=== PATIENT | male | born 1960 | race Caucasian/White ===

== ENCOUNTER 2023-12-01 08:57 | Inpatient (IN) | payer BC ==
[~2023-12-01] VITALS: Ht 152.4 cm; Wt 90.5 kg
[2023-12-01 12:19] LABS: BASO # 0.1 10^3/uL (0.0-0.2); EOS % 0.4 % (0.0-3.0); HEMATOCRIT 36.9 % (42.0-52.0); HEMOGLOBIN 13.1 g/dl (13.5-17.5); LYMPH # 0.9 10^3/uL (1.5-5.0); LYMPH % 8.1 % (24.0-44.0); MEAN CORPUSCULAR HEMOGLOBIN 38.2 pg (27.0-33.0); MEAN CORPUSCULAR HGB CONC 35.5 g/dl (32.0-36.5); MEAN CORPUSCULAR VOLUME 107.6 fl (80.0-96.0); MONO # 1.4 10^3/uL (0.0-0.8); MONO % 12.3 % (2.0-8.0); NEUTROPHILS # 8.6 10^3/uL (1.5-8.5); NEUTROPHILS % 76.6 % (36.0-66.0); RED BLOOD COUNT 3.43 10^6/uL (4.30-6.10); WHITE BLOOD COUNT 11.2 10^3/uL (4.0-10.0)
[2023-12-01 12:30] LABS: LIPASE 25 U/L (12-53)
[2023-12-01 12:33] LABS: ALBUMIN 1.5 G/DL (3.2-5.2); ALKALINE PHOSPHATASE 235 U/L (46-116); ALT/SGPT 112 U/L (7.0-40); AST/SGOT 405 U/L (<34); BILIRUBIN,DIRECT 8.1 MG/DL (<0.4); BILIRUBIN,TOTAL 12.5 MG/DL (0.3-1.2); BLOOD UREA NITROGEN 16 MG/DL (9-23); CALCIUM LEVEL 7.7 MG/DL (8.3-10.6); CARBON DIOXIDE LEVEL 31 MMOL/L (20-31); CHLORIDE LEVEL 94 MMOL/L (98-107); CREATININE FOR GFR 0.97 MG/DL (0.70-1.30); GLOMERULAR FILTRATION RATE > 60.0 (>49); GLUCOSE, FASTING 95 MG/DL (74-106); POTASSIUM SERUM 3.4 MMOL/L (3.5-5.1); SODIUM LEVEL 134 MMOL/L (136-145); TOTAL PROTEIN 7.4 G/DL (5.7-8.2)
[2023-12-01 12:47] LABS: INR 3.84; PARTIAL THROMBOPLASTIN TIME 49.7 SECONDS (24.8-34.2); PROTHROMBIN TIME 36.3 SECONDS (12.5-14.5)
[2023-12-01] MEDS ORDERED: ISOVUE-370 76% 100ML VIAL As Ordered ONE (13:01)
[2023-12-01 13:03] LABS: PLATELET COUNT, AUTOMATED 52 10^3/uL (150-450)
[2023-12-01] MEDS: PIPERACILLIN/TAZOBACTAM SOD 4.5 GM in D5W MINI-BAG PLUS 50 ML IV ONE (13:44)
[2023-12-01 14:00] LABS: RSV AMPLIFICATION NEGATIVE (NEGATIVE)
[2023-12-01] MEDS ORDERED: HOME MED LIST COMPLETE! XX SCH (14:55)
[2023-12-01] MEDS: FUROSEMIDE 40MG/4ML VIAL IV ONE (15:27)
[2023-12-01] MEDS: AZITHROMYCIN INJ 500 MG, VIAL MATE ADAPTER 1 EACH in D5W 250 ML IV ONE (15:27)
[2023-12-01 16:24] LABS: PROCALCITONIN 0.44 ng/ml
[2023-12-01] MEDS ORDERED: LORazepam 2 MG TAB PO PRN (16:35)
[2023-12-01 16:49] VITALS: BP 168/81; TEMP 98; O2SAT 93
[2023-12-01] MEDS: ONDANSETRON 4MG 2ML VIAL IV PRN (17:17)
[2023-12-01] MEDS: KCL 10MEQ/100ML SWI (KRUN) 10 MEQ in IV 1 EA IV ONE (17:19)
[2023-12-01] MEDS: SUCRALFATE SUSP 1GM/10ML UD PO SCH (17:20)
[2023-12-01] MEDS: THIAMINE 100 MG TAB PO SCH (17:20)
[2023-12-01] MEDS: PANTOPRAZOLE 40MG VIAL IV SCH (19:42)
[2023-12-01] MEDS: cefTRIAXone SOD 2 GM in D5W MINI-BAG PLUS 50 ML IV SCH (19:42)
[2023-12-01] MEDS: PENTOXIFYLLINE 400MG TAB PO SCH (19:42)
[2023-12-01 19:49] VITALS: BP 157/71; TEMP 99.4; O2SAT 94
[2023-12-01 21:25] VITALS: BP 155/72; TEMP 98.6; O2SAT 100
[2023-12-01] MEDS: diphenhydrAMINE 25MG CAP PO STA (22:37)
[2023-12-01] MEDS: RAMELTEON 8 MG TAB (ROZEREM) PO STA (22:37)
[2023-12-01 23:10] VITALS: BP 152/81; TEMP 99; O2SAT 93
[2023-12-01 23:58] VITALS: BP 141/72; TEMP 99.4; O2SAT 94
[2023-12-02] VITALS (8 sets, daily range): BP systolic 134–159; BP diastolic 66–93; TEMP 97.4–98.9; O2SAT 89–99
[2023-12-02 00:31] LABS: INR 3.03; PROTHROMBIN TIME 30.3 SECONDS (12.5-14.5)
[2023-12-02 06:46] LABS: INR 2.7; PROTHROMBIN TIME 27.7 SECONDS (12.5-14.5)
[2023-12-02 07:07] LABS: ALBUMIN 1.5 G/DL (3.2-5.2); ALKALINE PHOSPHATASE 160 U/L (46-116); ALT/SGPT 83 U/L (7.0-40); AST/SGOT 281 U/L (<34); BILIRUBIN,TOTAL 12.3 MG/DL (0.3-1.2); BLOOD UREA NITROGEN 17 MG/DL (9-23); CALCIUM LEVEL 7.6 MG/DL (8.3-10.6); CARBON DIOXIDE LEVEL 33 MMOL/L (20-31); CHLORIDE LEVEL 94 MMOL/L (98-107); CREATININE FOR GFR 0.99 MG/DL (0.70-1.30); GLOMERULAR FILTRATION RATE > 60.0 (>49); GLUCOSE, FASTING 98 MG/DL (74-106); MAGNESIUM LEVEL 1.6 MG/DL (1.8-2.4); POTASSIUM SERUM 3.2 MMOL/L (3.5-5.1); SODIUM LEVEL 134 MMOL/L (136-145); TOTAL PROTEIN 6.3 G/DL (5.7-8.2)
[2023-12-02] MEDS: MULTIVITAMINS/MINERALS THERAP 1 TAB PO SCH (09:33)
[2023-12-02] MEDS: FOLIC ACID 1MG TAB PO SCH (09:33)
[2023-12-02] MEDS: MAG SULF 1GM/100ML (MAG RUN) 1 GM in IV 1 EA IV SCH (09:34)
[2023-12-02] MEDS: KCL 10MEQ/100ML SWI (KRUN) 10 MEQ in IV 1 EA IV SCH (11:25)
[2023-12-02] MEDS: AZITHROMYCIN INJ 500 MG, VIAL MATE ADAPTER 1 EACH in NS 250 ML IV SCH (16:26)
[2023-12-02] MEDS: METOCLOPRAMIDE INJ 10MG/2ML VIAL IV SCH (16:27)
[2023-12-02 17:39] LABS: HEPATITIS C VIRUS ABY INDEX 0.17 INDEX (<0.8)
[2023-12-02 17:40] LABS: HEPATITIS B CORE ANTIBODY IGM NEGATIVE (NEGATIVE)
[2023-12-02] MEDS: LORazepam 1 MG TAB PO PRN (20:57)
[2023-12-03 03:31] VITALS: BP 140/73; TEMP 97.5; O2SAT 95
[2023-12-03 06:03] LABS: BASO # 0.1 10^3/uL (0.0-0.2); BASO % 0.8 % (0.0-1.0); EOS # 0.1 10^3/uL (0.0-0.5); EOS % 0.9 % (0.0-3.0); HEMATOCRIT 29.6 % (42.0-52.0); LYMPH # 1.7 10^3/uL (1.5-5.0); LYMPH % 17.3 % (24.0-44.0); MEAN CORPUSCULAR HGB CONC 34.8 g/dl (32.0-36.5); MEAN CORPUSCULAR VOLUME 109.2 fl (80.0-96.0); MONO # 1.2 10^3/uL (0.0-0.8); MONO % 11.6 % (2.0-8.0); NEUTROPHILS # 6.8 10^3/uL (1.5-8.5); NEUTROPHILS % 68.3 % (36.0-66.0); RED BLOOD COUNT 2.71 10^6/uL (4.30-6.10); WHITE BLOOD COUNT 9.9 10^3/uL (4.0-10.0)
[2023-12-03 06:04] LABS: HEMOGLOBIN 10.3 g/dl (13.5-17.5); PLATELET COUNT, AUTOMATED 40 10^3/uL (150-450)
[2023-12-03 06:20] LABS: ALBUMIN 1.4 G/DL (3.2-5.2); ALKALINE PHOSPHATASE 144 U/L (46-116); ALT/SGPT 78 U/L (7.0-40); AST/SGOT 233 U/L (<34); BILIRUBIN,TOTAL 13.6 MG/DL (0.3-1.2); BLOOD UREA NITROGEN 16 MG/DL (9-23); CALCIUM LEVEL 7.8 MG/DL (8.3-10.6); CARBON DIOXIDE LEVEL 35 MMOL/L (20-31); CHLORIDE LEVEL 93 MMOL/L (98-107); GLOMERULAR FILTRATION RATE > 60.0 (>49); GLUCOSE, FASTING 115 MG/DL (74-106); POTASSIUM SERUM 3.3 MMOL/L (3.5-5.1); SODIUM LEVEL 131 MMOL/L (136-145); TOTAL PROTEIN 6.1 G/DL (5.7-8.2)
[2023-12-03] MEDS: POTASSIUM CHLORIDE 10MEQ SR TABLET PO STA (06:37)
[2023-12-03 07:42] VITALS: BP 162/77; TEMP 98.4; O2SAT 93
[2023-12-03] MEDS ORDERED: BISACODYL 10MG SUPP PR PRN (10:15)
[2023-12-03] MEDS ORDERED: ACETAMINOPHEN TAB 650MG DOSE (2X325MG) PO PRN (10:15)
[2023-12-03] MEDS ORDERED: FLEET ENEMA PR PRN (10:15)
[2023-12-03] MEDS ORDERED: MORPHINE 2 MG/ML 1ML VIAL IV PRN (10:15)
[2023-12-03] MEDS ORDERED: ONDANSETRON 4MG ORAL DISINTEGRATING TAB PO PRN (10:15)
[2023-12-03] MEDS ORDERED: ACETAMINOPHEN 650MG SUPP PR PRN (10:15)
[2023-12-03] MEDS ORDERED: LORazepam 2 MG/ML 1ML VIAL IV PRN (10:15)
[2023-12-03] MEDS ORDERED: ATROPINE SULFATE 1% OPHTH SOLN 2ML BTL SL PRN (10:15)
[2023-12-03 12:00] VITALS: BP 147/69; TEMP 98.6; O2SAT 93
[2023-12-03] MEDS: LORazepam 1 MG TAB PO PRN (20:11)
[2023-12-04] MEDS: MORPHINE 10MG/0.5ML ORAL CONCENTRATE SOLUTION U/D SL PRN (15:05)
[2023-12-05] MEDS: SCOPOLAMINE 1MG TRANSDERMAL PATCH TOP PRN (12:58)
[2023-12-05] MEDS: HYOSCYAMINE SULFATE 0.125 MG SUBL TABLET PO PRN (23:54)
[2023-12-06] MEDS: guaiFENesin/CODEINE SYRUP 5 ML UDC PO PRN (15:52)
== END 2023-12-11 20:20 | disposition expired | DRG 280 ==
LOC: M ED 08:57 → M ED INP 15:46 → M PCU 16:44 → M MSPAV 12-03 12:38
PROVIDERS: ADMIT Internal Medicine; ATTEND Internal Medicine
DX: K70.31 Alcoholic cirrhosis of liver with ascites (principal); G93.6 Cerebral edema; J15.69 Pneumonia due to other Gram-negative bacteria; G93.41 Metabolic encephalopathy; J90 Pleural effusion, not elsewhere classified; D68.9 Coagulation defect, unspecified; E87.20 Acidosis, unspecified; D69.6 Thrombocytopenia, unspecified; E83.42 Hypomagnesemia; E87.1 Hypo-osmolality and hyponatremia; D64.9 Anemia, unspecified; E87.6 Hypokalemia; F10.20 Alcohol dependence, uncomplicated; I16.9 Hypertensive crisis, unspecified; J98.11 Atelectasis; D73.1 Hypersplenism; Z66 Do not resuscitate; Z51.5 Encounter for palliative care; K72.00 Acute and subacute hepatic failure without coma